=== PATIENT | female | born 1995 | race Caucasian/White ===

== ENCOUNTER 2022-06-14 12:15 | Emergency (ER) | payer BC ==
[~2022-06-14] VITALS: Ht 154.9 cm; Wt 56.7 kg
[2022-06-14 13:35] LABS: BASOPHILS % (AUTO) 0.3 % (0.0-2.0); HEMATOCRIT 43 % (33-45); HEMOGLOBIN 14.2 g/dL (11.5-14.8); LYMPHOCYTES # (AUTO) 1.9 K/uL (0.8-4.8); LYMPHOCYTES % (AUTO) 25.2 % (20.0-44.0); MEAN CORPUSCULAR HGB CONC 33 g/dl (31.0-36.0); MEAN CORPUSCULAR VOLUME 87 fL (82-100); MONOCYTES # (AUTO) 0.7 K/uL (0.1-1.30); MONOCYTES % (AUTO) 8.6 % (2.0-12.0); NEUTROPHILS % (AUTO) 64.9 % (43.0-81.0); PLATELET COUNT (AUTO) 224 K/uL (150-450); RED BLOOD CELL COUNT(AUTO) 4.91 MIL/uL (4.0-5.2); WHITE BLOOD COUNT (AUTO) 7.7 K/uL (4.3-11.0)
[2022-06-14 13:41] LABS: CALCIUM, SERUM 9.3 mg/dL (8.5-10.1); CARBON DIOXIDE 28 mmol/L (21-32); CHLORIDE 102 mmol/L (98-107); CREATININE 0.9 mg/dL (0.6-1.3); GLUCOSE 104 mg/dL (74-106); SODIUM SERUM 136 mmol/L (136-145); UREA NITROGEN, BLOOD 13 mg/dL (7-18)
[2022-06-14 15:16] VITALS: BP 123/71
== END 2022-06-14 15:16 | disposition home or self-care (01) ==
LOC: ER 12:22
DX: R07.9 Chest pain, unspecified (principal); F41.9 Anxiety disorder, unspecified; I44.0 Atrioventricular block, first degree; Z88.8 Allergy status to other drugs, medicaments and biological substances; Z60.2 Problems related to living alone
CPT/HCPCS: 36415; 71045-TC; 80048-TC; 84484-TC; 85025-TC; 85378-TC; 93970-TC

== ENCOUNTER 2022-09-25 11:34 | Emergency (ER) | payer BC ==
[~2022-09-25] VITALS: Ht 154.9 cm; Wt 57.6 kg
[2022-09-25] MEDS ORDERED: MAG HYDROX/AL HYDROX/SIMETH 30 ML UDC PO ONE (12:00)
[2022-09-25] MEDS ORDERED: LIDOCAINE VISCOUS 2% UD 15 ML UDC MM ONE (12:00)
[2022-09-25 12:11] LABS: BASOPHILS % (AUTO) 0.3 % (0.0-2.0); EOSINOPHILS % (AUTO) 1.2 % (0.0-6.0); HEMATOCRIT 42 % (33-45); HEMOGLOBIN 13.7 g/dL (11.5-14.8); LYMPHOCYTES # (AUTO) 2.4 K/uL (0.8-4.8); LYMPHOCYTES % (AUTO) 29.9 % (20.0-44.0); MEAN CORPUSCULAR HGB CONC 33 g/dl (31.0-36.0); MEAN CORPUSCULAR VOLUME 89 fL (82-100); MONOCYTES # (AUTO) 0.6 K/uL (0.1-1.30); NEUTROPHILS # (AUTO) 4.9 K/uL (1.8-8.9); NEUTROPHILS % (AUTO) 60.6 % (43.0-81.0); PLATELET COUNT (AUTO) 239 K/uL (150-450); RED BLOOD CELL COUNT(AUTO) 4.74 MIL/uL (4.0-5.2); WHITE BLOOD COUNT (AUTO) 8.1 K/uL (4.3-11.0)
[2022-09-25 12:14] LABS: BILIRUBIN,URINE NEGATIVE (NEGATIVE); COLOR,URINE YELLOW (YELLOW); LEUKOCYTE ESTERASE ,URINE NEGATIVE (NEGATIVE); NITRITE, URINE NEGATIVE (NEGATIVE); PROTEIN,URINE NEGATIVE (NEGATIVE); UGLUCOSE NEGATIVE (NEGATIVE); UROBILINOGEN,URINE 0.2 EU/dL (0.2)
[2022-09-25 12:21] LABS: CALCIUM, SERUM 9.3 mg/dL (8.5-10.1); CREATININE 0.8 mg/dL (0.6-1.3); POTASSIUM 3.9 mmol/L (3.5-5.1)
[2022-09-25] MEDS ORDERED: MAG HYDROX/AL HYDROX/SIMETH 30 ML UDC ONE (12:26)
[2022-09-25] MEDS ORDERED: LIDOCAINE VISCOUS 2% UD 15 ML UDC ONE (12:26)
[2022-09-25 12:33] LABS: ALBUMIN 3.9 g/dL (3.4-5.0); BILIRUBIN,DIRECT 0.1 mg/dL (0.0-0.2); BILIRUBIN,TOTAL 0.4 mg/dL (0.2-1.0); TOTAL PROTEIN, SERUM 7.6 g/dL (6.4-8.2)
--- NOTE | 2022-09-25 12:59 | NUR ---
BIBSelf, c/o upper Left Ab pain radiates to middle upper area of ab area
--- NOTE | 2022-09-25 13:38 | NUR ---
IV Stop Time [id number]
[2022-09-25 13:39] VITALS: BP 110/74
== END 2022-09-25 13:40 | disposition home or self-care (01) ==
LOC: ER 11:40
DX: R10.13 Epigastric pain (principal); K21.9 Gastro-esophageal reflux disease without esophagitis; Z88.8 Allergy status to other drugs, medicaments and biological substances; Z60.2 Problems related to living alone
CPT/HCPCS: 36415; 76700-TC; 80048-TC; 80076-TC; 84703-TC; 85025-TC

== ENCOUNTER 2024-01-17 07:40 | Emergency (ER) | payer BC, MEDICAID ==
[~2024-01-17] VITALS: Ht 154.9 cm; Wt 57.6 kg
[2024-01-17 08:20] VITALS: BP 114/75; TEMP 98.4; O2SAT 100
== END 2024-01-17 08:21 | disposition home or self-care (01) ==
LOC: ER 07:48
DX: R00.2 Palpitations (principal); Z88.8 Allergy status to other drugs, medicaments and biological substances; Z60.2 Problems related to living alone